=== PATIENT | female | born 1995 | race Caucasian/White ===

== ENCOUNTER → 2017-03-02 | Outpatient (CLI) | payer OTHER | LOC: RAD 10:52 | DX: M41.84 Other forms of scoliosis, thoracic region (principal); M41.85 Other forms of scoliosis, thoracolumbar region ==

== ENCOUNTER → 2019-03-01 | Outpatient (CLI) | payer BC | LOC: RAD 16:00 | DX: M25.571 Pain in right ankle and joints of right foot (principal) ==